=== PATIENT | female | born 1940 | race Two or more races ===

== ENCOUNTER → 2018-07-02 | Outpatient (CLI) | payer OTHER | END | disposition home or self-care (01) | LOC: SONOGRAMA 08:01 | DX: E04.1 Nontoxic single thyroid nodule (principal) ==

== ENCOUNTER 2022-07-01 09:42 | Outpatient (CLI) | payer OTHER | END 2022-07-01 09:47 | disposition home or self-care (01) | LOC: RX STUDY 09:42 | PROVIDERS: ATTEND Specialist | DX: R13.19 Other dysphagia (principal) ==